=== PATIENT | male | born 1960 | race Caucasian/White ===

== ENCOUNTER 2019-02-06 11:15 | Day surgery (SDC) | payer OTHER ==
[~2019-02-06 11:15] MED LIST: BASAGLAR K100 UNIT/1 SUBCUTANEO; CEPHALEXIN500 M1 PO; CLOMIPHENE CITR50 MG PO; HUMALOG MIX 75/23 M1; JARDIANCE10 MG PO; LEVAQUIN750 MG PO; METFORMIN HCL1000 M1; OXYBUTYNIN CHLOR5 M1 PO; SYNTHROID125 MCG; TAMS0.4C PO; VALSARTAN160 MG PO
== END 2019-02-06 22:00 | disposition home or self-care (01) ==
LOC: CIR.AMB 11:15
DX: K40.90 Unilateral inguinal hernia, without obstruction or gangrene, not specified as recurrent (principal)

== ENCOUNTER 2021-06-04 14:01 | Inpatient (IN) | payer OTHER ==
[~2021-06-04] VITALS: Ht 177.8 cm; Wt 81.2 kg
[2021-06-04] MEDS ORDERED: FERROUS SULFAT325 MG PO (14:24)
[2021-06-04] MEDS ORDERED: CABERGOLINE0.5 MG PO (14:24)
[2021-06-04] MEDS ORDERED: ARMOUR THYROID30 M1 PO (14:24)
[2021-06-04] MEDS ORDERED: HORIZANT300 MG PO (14:25)
[2021-06-05] MEDS ORDERED: LANTUS SOL100 UNIT/1 (16:15)
[2021-06-05] MEDS ORDERED: LISINOPRIL5 MG (16:15)
[2021-06-05] MEDS ORDERED: METOPROLOL SUCC25 MG (16:15)
[2021-06-15] MEDS ORDERED: INTESTINEX680 M1 PO (12:53)
[2021-06-15] MEDS ORDERED: BACTRIM DS TAB1 EACH PO (12:53)
== END 2021-06-15 15:34 | disposition home or self-care (01) | DRG 854 ==
LOC: ER 14:01 → MEDI 22:22
PROVIDERS: ADMIT Internal Medicine; ATTEND Internal Medicine
PROC: 30233N1 Transfusion of Nonautologous Red Blood Cells into Peripheral Vein, Percutaneous Approach (ICD-10-PCS; 2021-06-05)
PROC: B44HZZZ Ultrasonography of Bilateral Lower Extremity Arteries (ICD-10-PCS; 2021-06-09)
PROC: 0JBQ0ZZ Excision of Right Foot Subcutaneous Tissue and Fascia, Open Approach (ICD-10-PCS; principal; 2021-06-10)
PROC: 0HBRXZZ Excision of Toe Nail, External Approach (ICD-10-PCS; 2021-06-15)
DX: A41.9 Sepsis, unspecified organism (principal); L03.116 Cellulitis of left lower limb; N17.8 Other acute kidney failure; N39.0 Urinary tract infection, site not specified; L97.518 Non-pressure chronic ulcer of other part of right foot with other specified severity; E11.621 Type 2 diabetes mellitus with foot ulcer; D64.9 Anemia, unspecified; Z20.822 Contact with and (suspected) exposure to COVID-19; E11.40 Type 2 diabetes mellitus with diabetic neuropathy, unspecified; E03.8 Other specified hypothyroidism; E11.65 Type 2 diabetes mellitus with hyperglycemia; Z79.4 Long term (current) use of insulin